=== PATIENT | female | born 1975 | race African-American/Black ===

== ENCOUNTER 2021-05-09 12:16 | Emergency (ER) | payer OTHER ==
[~2021-05-09] VITALS: Ht 172.7 cm; Wt 79.4 kg
[~2021-05-09 12:16] MED LIST: NOHOMEMEDICATIONS; PRENATAL COMPL1 EACH PO
[2021-05-09 15:24] LABS: URINE BILIRUBIN NEGATIVE (Negative); URINE BLOOD NEGATIVE (Negative); URINE CLARITY CLEAR; URINE COLOR YELLOW; URINE GLUCOSE-RANDOM* NEGATIVE (Negative); URINE KETONES 2+ (Negative); URINE LEUKOCYTES-REFLEX TRACE (Negative); URINE NITRITE-REFLEX NEGATIVE (Negative); URINE PROTEIN (DIPSTICK) TRACE (Negative); URINE SPECIFIC GRAVITY >= 1.030 (1.005-1.035)
[2021-05-09] MEDS ORDERED: ZANAFLEX4 MG PO (15:27)
[2021-05-09] MEDS ORDERED: MEDROLDOSEPACK PO (15:27)
[2021-05-09 15:33] VITALS: BP 116/70
== END 2021-05-09 15:33 | disposition home or self-care (01) ==
LOC: ER 12:16
PROVIDERS: Nurse Practitioner
DX: S39.012A Strain of muscle, fascia and tendon of lower back, initial encounter (principal); Z79.899 Other long term (current) drug therapy; X58.XXXA Exposure to other specified factors, initial encounter; Y93.89 Activity, other specified; Y92.89 Other specified places as the place of occurrence of the external cause; Y99.8 Other external cause status